=== PATIENT | female | born 1985 | race Two or more races ===

== ENCOUNTER 2021-04-12 08:18 | Emergency (ER) | payer OTHER ==
[~2021-04-12] VITALS: Ht 152.4 cm; Wt 49.4 kg
[2021-04-12 10:20] VITALS: BP 114/73
== END 2021-04-12 10:25 | disposition home or self-care (01) ==
LOC: ER 08:18
DX: S42.432A Displaced fracture (avulsion) of lateral epicondyle of left humerus, initial encounter for closed fracture (principal); X58.XXXA Exposure to other specified factors, initial encounter; Y93.89 Activity, other specified; Y92.89 Other specified places as the place of occurrence of the external cause; Y99.8 Other external cause status
CPT/HCPCS: 29105; 73080